=== PATIENT | female | born 1960 | race Caucasian/White ===

== ENCOUNTER → 2016-11-30 | Outpatient (CLI) | payer MEDICARE, OTHER ==
[2016-11-30 15:44] LABS: CH 29.8; CHCM 33.9; HCT 40.4 % (34.0-46.0); HDW 2.67; HGB 13.8 gm/dL (11.4-16.0); MCH 30.3 pg (25.0-35.0); MCHC 34.2 g/dL (31.0-37.0); MCV 88.5 fL (80.0-100.0); Mean Platelet Volume 7.8; RBC 4.57 m/uL (3.80-5.40); RDW 13.4 % (11.5-15.5); WBC 4.6 k/uL (3.8-10.6)
[2016-11-30 16:16] LABS: ALT 46 U/L (9-52); AST 24 U/L (14-36); Alkaline Phosphatase 54 U/L (38-126); Anion Gap 7 mmol/L; Blood Urea Nitrogen 9 mg/dL (7-17); C Reactive Protein <5.0 mg/L (<10.0); Calcium 9.5 mg/dL (8.4-10.2); Carbon Dioxide 29 mmol/L (22-30); Chloride 108 mmol/L (98-107); Creatine Kinase 52 U/L (30-135); Glucose 88 mg/dL (74-99); Magnesium 1.9 mg/dL (1.6-2.3); Non-African American GFR(MDRD) >60 (>60 ml/min/1.73 sqM); Potassium 4.1 mmol/L (3.5-5.1); Sodium 144 mmol/L (137-145); Total Protein 7.2 g/dL (6.3-8.2)
[2016-11-30 16:58] LABS: Vitamin B12 597 pg/mL (239-931)
[2016-11-30 17:42] LABS: Erythrocyte Sedimentation Rate 10 mm/hr (0-20)
[2016-11-30 18:15] LABS: Hemoglobin A1C 5.2 % (4.2-6.1)
[2016-12-01 05:40] LABS: Cyclic Citrullinated Pep IgG 5 UNITS (<20)
[2016-12-02 06:49] LABS: Vitamin E (Alpha Tocopherol) 1094 ug/dL (500-1800)
[2016-12-08 22:37] LABS: Vitamin K 87 pg/mL (80-1160)
[2016-12-12 09:01] LABS: Mis test requested (Blood) Vitamin B3 (Niacin)
== END | disposition home or self-care (01) ==
LOC: LABWHC1 15:12
PROVIDERS: ATTEND Psychiatry & Neurology Pain Medicine
DX: G89.4 Chronic pain syndrome (principal); M79.7 Fibromyalgia; Z79.899 Other long term (current) drug therapy
CPT/HCPCS: 36415; 80053; 82306; 82550; 82607; 83036; 83519; 83735; 84207; 84425; 84446; 84590; 84591; 84597; 85027; 85652; 86140; 86200; 86235

== ENCOUNTER 2017-06-09 06:32 | Day surgery (SDC) | payer MEDICARE, OTHER ==
[2017-06-05 15:37] VITALS: BMI 29.1
[2017-06-09] MEDS ORDERED: SODIUM CHLORIDE 0.9% 1,000 ML in EMPTY BAG 1 BAG IV ONE (06:36)
[2017-06-09] MEDS ORDERED: ALPRAZolam 0.25 MG TAB PO PRN (06:36)
[2017-06-09] MEDS ORDERED: ASPIRIN 325 MG TAB PO STA (06:36)
[2017-06-09] MEDS ORDERED: ZOLPIDEM 5 MG TAB PO PRN (06:36)
[2017-06-09 07:20] VITALS: TEMP 98
[2017-06-09] MEDS ORDERED: MIDAZOLAM 2 MG/2 ML VIAL IV ONE (07:44)
[2017-06-09] MEDS ORDERED: LIDOCAINE 2% INJ 20 MG/ML SQ ONE (07:44)
[2017-06-09] MEDS ORDERED: IODIXANOL 320 MG/ML 100 ML INTRAARTER ONE (08:13)
[2017-06-09] MEDS ORDERED: SODIUM CHLORIDE 0.9% 1,000 ML IV SCH (08:15)
[2017-06-09] MEDS ORDERED: HYDROcodone/APAP 5-325MG 1 EACH TAB PO STA (09:36)
[2017-06-09] MEDS ORDERED: HYDROcodone/APAP 5-325MG 1 EACH TAB ONE (09:39)
[2017-06-09 11:44] VITALS: PULSE 68
[2017-06-09 13:54] VITALS: RESP 18
[2017-06-09 13:55] VITALS: BP 119/75
--- NOTE | 2017-06-09 16:09 | LTR ---
Date: June 09, [address] Beltrán: Mrs. Courtney Worthington underwent abdominal aortogram and bilateral lower extremities runoff today. This study showed normal aortoiliac arteries bilaterally, normal femoral- popliteal arteries bilaterally, but severe klwrm-djm-yxyw disease bilaterally with very diminished flow and probably subtotally occluded AT and PT on the right side as well as very diminished flow and probably subtotally occluded anterior tibial, and peroneal on the left side. In view of the absence of critical limb ischemia. I would recommend maximize medical treatment and follow up. I want to thank you very much for allowing me to participate in her care and please do not hesitate to call me with any question or concern. MMODL / IJN: [id number] /
--- NOTE | 2017-06-09 16:22 | AN ---
ANGIOGRAPHY REPORT DATE OF PROCEDURE: 06/09/2017 PERFORMING PHYSICIAN: Toro Agarwal, connection worker. PROCEDURES PERFORMED: 1. Abdominal aortogram. 2. Bilateral lower extremity runoff. 3. Selective left superficial femoral artery angiogram. 4. Selective right common femoral artery angiogram. 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 Moraes as her nursing director. She was experiencing bilateral lower extremity discomfort related to intermittent claudication. She underwent an ankle brachial index as an outpatient in Dr. Beltrán's office which was abnormal bilaterally, indicating severe underlying PAD. APPROACH: Right common femoral artery. COMPLICATIONS: None. LEVEL OF SEDATION: Moderate with sedation length of 30 minutes. PROCEDURE DESCRIPTION: After obtaining informed consent, the patient was brought to the cardiac director of cardiac cath lab. The right common femoral artery was cannulated using micropuncture technique under ultrasound guidance. The micropuncture wire passed easily. Then I placed a 5-[place] sheath in the right common femoral artery. Subsequently I did an abdominal aortogram and bilateral lower extremity runoff using 5-[place] pigtail catheter which was initially placed at the level of the renal arteries. Then it was pulled into above the bifurcation of the aorta to right and left common iliac arteries. After that, I selected the left SFA as well as the right common femoral artery for better dklba-bry-dqzf opacifications. The procedure was completed without any complication. SELECTIVE PERIPHERAL ANGIOGRAM: 1. The abdominal aorta is angiographically normal. It bifurcates into right and left common iliac arteries. 2. Common iliac arteries. The right and left common iliac arteries are angiographically normal. 3. Internal iliac arteries. The right and left internal iliacs are angiographically normal. 4. External iliacs. The right and left external iliacs are angiographically normal. 5. Common femorals. The right and left common femoral arteries are angiographically normal. 6. Profundae. The right and left profundae are normal. 7. SFA. The right and left SFAs are angiographically normal. 8. Popliteals. The right and left popliteals are angiographically normal. 9. Below the knee. There were poor opacifications of the arteries below the knee, and for that reason I selected the left SFA and the right common femoral arteries. On the left side, there was 3-vessel runoff with very dominant posterior tibial and very diminished flow in the anterior tibial as well as peroneal. On the right side, though, there were also 4 opacifications, but I was able to visualize a very dominant peroneal with poor opacifications and probably subtotally occluded PT and AT. CONCLUSION: 1. Normal aortoiliac arteries bilaterally. 2. Normal femoropopliteal arteries bilaterally. 3. Severe favie-fnn-axcr disease disease bilaterally with subtotally occluded AT and PT on the right side as well as subtotally occluded AT and peroneal on the left side. POST-PROCEDURE MANAGEMENT: 1. Maximize medical treatment in view of the absence of critical limb ischemia in this lady. 2. Follow up with the patient. MMODL / IJN: [id number] /
--- NOTE | 2017-06-15 06:31 | IR ---
EXAMINATION TYPE: IR angio abdominal w runoff DATE OF EXAM: 06/09/2017 COMPARISON: NONE HISTORY: Peripheral vascular occlusive disease. Fluoroscopy was provided to the referring clinician. See dictated report from cardiology.
== END 2017-06-09 13:55 | disposition home or self-care (01) ==
LOC: CATHCVL 06:32
PROVIDERS: ATTEND Internal Medicine Interventional Cardiology
DX: I70.213 Atherosclerosis of native arteries of extremities with intermittent claudication, bilateral legs (principal); Z87.891 Personal history of nicotine dependence; E78.5 Hyperlipidemia, unspecified; Z79.1 Long term (current) use of non-steroidal anti-inflammatories (NSAID); Z79.899 Other long term (current) drug therapy
CPT/HCPCS: 36200; 75625; 75716; 99152; 99153; C1769 ×4; C1894; J2001; J2250; Q9967

== ENCOUNTER → 2018-03-07 | Outpatient (CLI) | payer MEDICARE | END | disposition home or self-care (01) | LOC: LABWHC1 15:54 | PROVIDERS: ATTEND Nurse Practitioner Acute Care | DX: I49.9 Cardiac arrhythmia, unspecified (principal) | CPT/HCPCS: 36415; 93005 ==

== ENCOUNTER → 2018-08-08 | Outpatient (CLI) | payer MEDICARE, OTHER ==
--- NOTE | 2018-08-09 12:01 | MM ---
Reason for exam: screening (asymptomatic). Last mammogram was performed 1 year and 11 months ago. History: Patient is postmenopausal. Benign US breast needle core LT of the left breast, January 18, 2016. MG 3D Screening Mammo W/Cad Bilateral CC and MLO view(s) were taken. Prior study comparison: August 25, 2016, left breast MG 3d diag mammo w/cad LT. January 18, 2016, left breast MG diagnostic mammo LT wo CAD. The breast tissue is heterogeneously dense. This may lower the sensitivity of mammography. Previous mammotome biopsy left breast. No discrete abnormality. No significant new finding since most recent study. ASSESSMENT: Benign, BI-RAD 2 RECOMMENDATION: Routine screening mammogram of both breasts in 1 year.
== END | disposition home or self-care (01) ==
LOC: RADMAMWWP 15:12
PROVIDERS: ATTEND Family Medicine
DX: Z12.31 Encounter for screening mammogram for malignant neoplasm of breast (principal)
CPT/HCPCS: 77063; 77067

== ENCOUNTER → 2018-08-14 | Outpatient (CLI) | payer MEDICARE, OTHER | END | disposition home or self-care (01) | LOC: LABWHC1 08:53 | PROVIDERS: ATTEND Psychiatry & Neurology Pain Medicine | DX: Z01.818 Encounter for other preprocedural examination (principal) | CPT/HCPCS: 36415; 93005 ==

== ENCOUNTER 2019-01-11 07:26 | Day surgery (SDC) | payer MEDICARE, OTHER ==
[2019-01-08 11:25] VITALS: BMI 29.9
[~2019-01-11 07:26] MED LIST: SODIUM CHLORIDE 0.9% 1,000 ML in EMPTY BAG 1 BAG IV ONE
[2019-01-11 07:47] VITALS: TEMP 97.9
[2019-01-11] MEDS ORDERED: MIDAZOLAM (PF) 2 MG/2 ML VIAL IV ONE (10:06)
[2019-01-11] MEDS ORDERED: LIDOCAINE 1% INJ 10MG/ML (20 ML MDV) SQ ONE (10:09)
[2019-01-11] MEDS ORDERED: IOPAMIDOL-250 50ML BTL INTRAARTER ONE (10:29)
[2019-01-11] MEDS ORDERED: IOPAMIDOL-250 100ML BTL INTRAARTER ONE (10:29)
[2019-01-11] MEDS ORDERED: SODIUM CHLORIDE 0.9% 1,000 ML IV SCH (10:45)
--- NOTE | 2019-01-11 11:17 | IR ---
EXAMINATION TYPE: IR angio abdominal w runoff DATE OF EXAM: 01/11/2019 COMPARISON: NONE HISTORY: Fluoroscopy time. Fluoroscopy was provided to the referring clinician.
[2019-01-11 11:32] VITALS: RESP 18
[2019-01-11 14:35] VITALS: BP 138/84; PULSE 92
--- NOTE | 2019-01-11 14:57 | LTR ---
January 11, 2019 To: Dr. Whalen Re: Courtney Worthington (64) Dear Dr. Whalen, Ms. Courtney Worthington underwent today peripheral angiogram that showed severe below-the- knee disease bilaterally. I did advise maximized medical treatment at this point of time and followup with her. Thank you for allowing us to participate in her care. Please do not hesitate to call if you have any question or concern. Sincerely, Eduardo Lucio M.D. MELVIN / ARABELLA: [id number] /
--- NOTE | 2019-01-11 18:24 | AN ---
ANGIOGRAPHY REPORT DATE OF SERVICE: 01/11/2019 PERFORMING PHYSICIAN: Eduardo Lucio MD, project manager finance. PROCEDURES PERFORMED: 1. Abdominal aortogram. 2. Bilateral lower extremity runoff. 3. Non-selective left qfkxh-fxx-zvhf angiogram. INDICATION: This is a 58-year-old female patient with hypertension and dyslipidemia and known history of peripheral arterial disease based on angiogram that was performed in 2017. At that point she was found to have severe agpfv-dua-ebtw disease bilaterally, but maximized medical treatment was advised because she was only a . Recently she developed a non-healing ulcer involving the third toe on the left side. She was seen by Dr. Beltrán, her feed crusher operator, who recommended proceeding with a peripheral angiogram. APPROACH: Left common femoral artery. COMPLICATIONS: None. LEVEL OF SEDATION: Moderate with sedation length of 22 minutes. PROCEDURE DESCRIPTION: After obtaining informed consent, the patient was brought to the cardiac laborer wharf. The left common femoral artery was cannulated using micropuncture technique and the micropuncture wire passed easily. Then I placed a 5-[place] sheath in the left common femoral artery. I did an abdominal aortogram and bilateral lower extremity runoff using a 4-[place] pigtail catheter which was initially placed at the level of the renal arteries, then it was pulled into above the bifurcation of the aorta to right and left common iliac arteries. After that I did multiple injections through the sheath to assess the arteries below the knee on the left side. The procedure was completed without any complication. SELECTIVE PERIPHERAL ANGIOGRAM: 1. The aorta appeared to be angiographically normal. 2. Common iliac arteries. The right and left common iliac arteries are angiographically normal. 3. External iliac arteries. The right and left external iliac arteries are normal. 4. Internal. The right and left internal are patent. 5. Common femoral arteries. The right and left common femoral arteries are angiographically normal. 6. Profundae. Both profundae are patent. 7. SFA. Both SFAs appeared to have mild disease only. 8. Popliteals. Both popliteals appeared to be angiographically normal. 9. Below the knee. On the right side she has anterior tibial and peroneal open. On the left side she has only posterior tibial with occluded anterior tibial and peroneal at the mid level. CONCLUSION: 1. Normal aortoiliac arteries. 2. Normal femoral-popliteal arteries. 3. Severe sqmul-gnp-yewu disease bilaterally. On the left side the patient has only one-vessel runoff with posterior tibial with occluded anterior tibial as well as occluded peroneal. The occlusion is a long segment extending from the proximal portion of these arteries all the way to the foot level. POST-PROCEDURE MANAGEMENT: 1. I did advise maximized medical treatment at this point of time. 2. Increase the dose of cilostazol. 3. Follow up with the patient. MMNATHAN / IJN: [id number] /
== END 2019-01-11 16:00 | disposition home or self-care (01) ==
LOC: CATHCVL 07:26
PROVIDERS: ATTEND Internal Medicine Interventional Cardiology
DX: I70.213 Atherosclerosis of native arteries of extremities with intermittent claudication, bilateral legs (principal); I99.8 Other disorder of circulatory system; I10 Essential (primary) hypertension; E78.5 Hyperlipidemia, unspecified; F17.210 Nicotine dependence, cigarettes, uncomplicated; Z79.899 Other long term (current) drug therapy; Z79.82 Long term (current) use of aspirin; Z79.890 Hormone replacement therapy; Z79.1 Long term (current) use of non-steroidal anti-inflammatories (NSAID)
CPT/HCPCS: 36200; 75625; 75716; C1894; C1769 ×4; J2001; Q9966 ×2; J2250

== ENCOUNTER → 2019-05-17 | Outpatient (CLI) | payer MEDICARE, OTHER | END | disposition home or self-care (01) | LOC: LABWHC1 14:15 | PROVIDERS: ATTEND Psychiatry & Neurology Pain Medicine | DX: Z01.818 Encounter for other preprocedural examination (principal) | CPT/HCPCS: 36415; 93005 ==

== ENCOUNTER → 2019-05-21 | Outpatient (CLI) | payer MEDICARE, OTHER ==
--- NOTE | 2019-05-21 15:46 | XR ---
EXAMINATION TYPE: XR finger LT DATE OF EXAM: 05/21/2019 COMPARISON: NONE HISTORY: Pain TECHNIQUE: Two views of the left middle digit are submitted. FINDINGS: The osseous structures are intact. The joint spaces are preserved and there is no acute fracture or dislocation. IMPRESSION: 1. No definite acute fracture or dislocation if symptoms persist, follow-up study in 7 to 10 days wo uld be suggested
== END | disposition home or self-care (01) ==
LOC: RADXRYALE 15:16
PROVIDERS: ATTEND Physician Assistant Medical
DX: S61.203A Unspecified open wound of left middle finger without damage to nail, initial encounter (principal)

== ENCOUNTER → 2019-08-02 | Outpatient (CLI) | payer MEDICARE, OTHER ==
--- NOTE | 2019-08-02 16:20 | CT ---
EXAMINATION TYPE: CT cervical spine wo con DATE OF EXAM: 08/02/2019 COMPARISON: None HISTORY: 59-year-old female Cervicalgia TECHNIQUE: Contiguous axial scanning of the cervical spine without IV contrast. Coronal and sagittal reconstructions performed. CT DLP: 537.50 mGycm Automated exposure control for dose reduction was used. FINDINGS: Spinal stimulator array images present along the dorsal aspect of the cervical spinal canal. The lead s enter the spinal canal via the C7-T1 interlaminar space No craniocervical junction abnormality, predental space widening, or prevertebral soft tissue swellin g. Reversal of the normal cervical lordosis. Moderate to advanced degenerative disc disease at C5-C6 with disc height loss, vacuum phenomenon, and disc osteophyte complex. An underlying mild to moderate spinal canal stenosis is suspected here. Uncovertebral joint arthropathy especially in the mid cervical spine. Scattered mild facet arthropath y. At C2-C3, mild right neuroforaminal narrowing. At C3-C4, mild right neuroforaminal stenosis. At C5-C6, moderate to severe left and moderate right neuroforaminal stenosis. Bulky enlargement of the bilateral lingual tonsils effacing the vallecular spaces. IMPRESSION: 1. SPINAL STIMULATOR ARRAY WITHIN THE DORSAL ASPECT OF THE CERVICAL SPINAL CANAL. LEADS ENTERING VIA THE C7-T1 INTERLAMINAR SPACE. 2. REVERSAL OF THE NORMAL CERVICAL LORDOSIS BUT WITH PRESERVED ALIGNMENT. 3. MODERATE TO ADVANCED DEGENERATIVE DISC DISEASE AT C5-C6 WITH DISC OSTEOPHYTE COMPLEX CONTRIBUTING TO A MILD TO MODERATE SPINAL CANAL STENOSIS HERE. 4. ADDITIONAL SCATTERED FACET AND UNCOVERTEBRAL JOINT ARTHROPATHY. MODERATE TO SEVERE LEFT AND MODERA TE RIGHT NEUROFORAMINAL STENOSIS AT C5-C6. ADDITIONAL SCATTERED MILD NEURAL FORAMINAL NARROWING PARTI CULARLY ON THE RIGHT. 5. INCIDENTAL: BILATERAL BULKY LINGUAL TONSILLAR HYPERTROPHY.
[2019-08-02 20:07] LABS: Anti-DNA, DS unit <1.0 IU/mL; Anti-Smith Ab Interp NEGATIVE (NEGATIVE); Cyclic Citrull Pep IgG Unit <0.5 U/mL; Cyclic Citrullinated Pep IgG NEGATIVE (NEGATIVE); DNA Double-Stranded NEGATIVE (NEGATIVE); JO-1 IgG Antibody <0.2 AI; Scleroderma SC-70 Ab <0.2 AI
== END | disposition home or self-care (01) ==
LOC: RADCTMAIN 13:38
PROVIDERS: ATTEND Psychiatry & Neurology Neurology
DX: M48.02 Spinal stenosis, cervical region (principal); M50.322 Other cervical disc degeneration at C5-C6 level; M46.92 Unspecified inflammatory spondylopathy, cervical region; M25.50 Pain in unspecified joint; Z98.890 Other specified postprocedural states
CPT/HCPCS: 72125; 83516; 86038; 86200; 86225; 86235

== ENCOUNTER → 2019-09-23 | Outpatient (CLI) | payer MEDICARE, OTHER ==
--- NOTE | 2019-09-26 10:41 | MM ---
Reason for exam: screening (asymptomatic). Last mammogram was performed 1 year and 2 months ago. History: Patient is postmenopausal. Benign US breast needle core LT of the left breast, January 18, 2016. Physical Findings: A clinical breast exam by your physician is recommended on an annual basis and results should be correlated with mammographic findings. MG 3D Screening Mammo W/Cad Bilateral CC and MLO view(s) were taken. Prior study comparison: August 08, 2018, bilateral MG 3d screening mammo w/cad. August 25, 2016, left breast MG 3d diag mammo w/cad LT. The breast tissue is heterogeneously dense. This may lower the sensitivity of mammography. Previous mammotome biopsy in the left breast. There is no discrete abnormality. ASSESSMENT: Benign, BI-RAD 2 RECOMMENDATION: Routine screening mammogram of both breasts in 1 year.
== END | disposition home or self-care (01) ==
LOC: RADMAMWWP 16:20
PROVIDERS: ATTEND Family Medicine
DX: Z12.31 Encounter for screening mammogram for malignant neoplasm of breast (principal)
CPT/HCPCS: 77063; 77067

== ENCOUNTER → 2019-12-11 | Outpatient (CLI) | payer MEDICARE, OTHER ==
--- NOTE | 2019-12-11 16:15 | CT ---
EXAMINATION TYPE: CT lumbar spine wo con DATE OF EXAM: 12/11/2019 4:04 PM COMPARISON: CT lumbar spine September 02, 2016. HISTORY: Low back pain x 5-[address] DLP: 744.2 mGycm Automated exposure control for dose reduction was used. Unenhanced CT of the lumbar spine was performed. Bone and soft tissue window settings are submitted as well as coronal and sagittal reconstructions. There are 5 lumbar-type vertebra redemonstrated. Vertebral body heights and disc space heights are ma intained. Spinal canal grossly preserved. Review of axial images shows mild facet arthropathy L3-L4 level. There is mild broad disc bulge and mild to moderate right greater than left facet degenerative change s L4-L5 level with mild effacement of the anterior and posterior lateral thecal sac that is more prom inent from 2016 study and causing mild right-sided anterior inferior neural foraminal narrowing. Axial images at the L5-S1 level mild facet degenerative changes bilaterally with r and tiny right par acentral disc protrusion. Bilateral neural foramina are patent. Suspect some recent contrast as there is some density in collecting systems. Correlate clinically. IMPRESSION: Mild degenerative changes mid to lower lumbar spine most prominent L4-L5 level with some progression from 2016 CT.
== END ==
LOC: RADCTMAIN 15:37
PROVIDERS: ATTEND Psychiatry & Neurology Neurology
DX: M47.816 Spondylosis without myelopathy or radiculopathy, lumbar region (principal)
CPT/HCPCS: 72131

== ENCOUNTER → 2020-03-06 | Outpatient (CLI) | payer MEDICARE, OTHER | END | disposition home or self-care (01) | LOC: LABPAT 12:50 | PROVIDERS: ATTEND Psychiatry & Neurology Pain Medicine | DX: Z01.818 Encounter for other preprocedural examination (principal) | CPT/HCPCS: 93005 ==

== ENCOUNTER → 2020-06-03 | Outpatient (CLI) | payer MEDICARE, OTHER ==
--- NOTE | 2020-06-03 17:21 | XR ---
EXAMINATION TYPE: XR ribs RT w pa chest xray DATE OF EXAM: 06/03/2020 CLINICAL HISTORY: Chest pain. Right anterior mid rib pain after fall 2010 days ago. TECHNIQUE: Frontal view of the chest obtained. For views of the right ribs obtained. COMPARISON: 02/04/2016 chest radiograph FINDINGS: Spinal stimulator leads overlying the cervicothoracic junction and left hemithorax and left upper abdomen. Cardiac mediastinal silhouette and pulmonary catheter normal. No focal airspace opaci ty, pleural effusion, or pneumothorax. No evidence of displaced rib fracture. IMPRESSION: No evidence of displaced rib fracture.
== END | disposition home or self-care (01) ==
LOC: RADXRYALE 10:25
PROVIDERS: ATTEND Physician Assistant
DX: R07.89 Other chest pain (principal)

== ENCOUNTER → 2020-09-14 | Outpatient (CLI) | payer MEDICARE, OTHER | END | disposition home or self-care (01) | LOC: LABWHC1 08:36 | PROVIDERS: ATTEND Psychiatry & Neurology Pain Medicine | DX: Z01.818 Encounter for other preprocedural examination (principal) | CPT/HCPCS: 36415; 93005 ==

== ENCOUNTER → 2021-01-19 | Outpatient (CLI) | payer MEDICARE, OTHER ==
--- NOTE | 2021-01-20 08:07 | BD ---
EXAMINATION TYPE: Axial Bone Density DATE OF EXAM: 01/19/2021 COMPARISON: NONE CLINICAL HISTORY: Height: 64 IN Weight: 170 LBS FRAX RISK QUESTIONS: Secondary Osteoporosis: Rheumatoid Arthritis: YES RISK FACTORS HISTORY OF: Active: YES Postmenopausal woman: AGE 51 MEDICATIONS: Thyroid Medications: YES Which medication: Synthroid How Lon + YEARS Additional Medications: CALCIUM, VIT D, SYNTHROID, AMITRIPTYLINE, CILOSTAZOL, DULOXETINE, FAMOTIDINE, MELATONIN, PRAMIPEXOLE, PRAVASTATIN EXAM MEASUREMENTS: Bone mineral densitometry was performed using the [employer] [facility]. Bone mineral density as measured about the Lumbar spine is: ----- L1-L4(G/cm2): 1.107 T Score Values are as follows: ----- L2: -1.4 ----- L3: 0.4 ----- L4: 0.0 ----- L1-L4: -0.6 Bone mineral density BASELINE Bone mineral density about the R hip (g/cm2): 0.923 Bone mineral density about the L hip (g/cm2): 0.823 T Score values are as follows: -----R Neck: -0.8 -----L Neck: -1.0 -----R Total: -0.7 -----L Total: -0.6 Bone mineral density BASELINE IMPRESSION: No evidence for osteoporosis or osteopenia. NOTE: T-SCORE=SD OF THE YOUNG ADULT MEAN.
--- NOTE | 2021-01-20 08:35 | MM ---
Reason for exam: screening (asymptomatic). Last mammogram was performed 1 year and 4 months ago. History: Patient is postmenopausal. Benign US breast needle core LT of the left breast, January 18, 2016. Physical Findings: A clinical breast exam by your physician is recommended on an annual basis and results should be correlated with mammographic findings. MG 3D Screening Mammo W/Cad Bilateral CC and MLO view(s) were taken. Prior study comparison: September 23, 2019, bilateral MG 3d screening mammo w/cad. August 08, 2018, bilateral MG 3d screening mammo w/cad. The breast tissue is heterogeneously dense. This may lower the sensitivity of mammography. Previous mammotome biopsy in the right breast. No significant changes when compared with prior studies. ASSESSMENT: Benign, BI-RAD 2 RECOMMENDATION: Routine screening mammogram of both breasts in 1 year.
== END | disposition home or self-care (01) ==
LOC: RADMAMWWP 15:23
PROVIDERS: ATTEND Family Medicine
DX: Z12.31 Encounter for screening mammogram for malignant neoplasm of breast (principal); Z78.0 Asymptomatic menopausal state; M81.8 Other osteoporosis without current pathological fracture
CPT/HCPCS: 77063; 77067; 77080

== ENCOUNTER → 2021-03-12 | Outpatient (CLI) | payer MEDICARE, OTHER | END | disposition home or self-care (01) | LOC: LABWHC1 14:31 | PROVIDERS: ATTEND Psychiatry & Neurology Pain Medicine | DX: Z01.810 Encounter for preprocedural cardiovascular examination (principal) | CPT/HCPCS: 36415; 93005 ==

== ENCOUNTER → 2021-07-28 | Outpatient (CLI) | payer MEDICARE, OTHER | END | disposition home or self-care (01) | LOC: LABWHC1 14:52 | PROVIDERS: ATTEND Psychiatry & Neurology Pain Medicine | DX: Z51.81 Encounter for therapeutic drug level monitoring (principal) | CPT/HCPCS: 93005 ==

== ENCOUNTER → 2021-11-16 | Outpatient (CLI) | payer MEDICARE, OTHER ==
[2021-11-16 19:15] LABS: T4, Free (Free Thyroxine) 1.65 ng/dL (0.800-1.800)
== END | disposition home or self-care (01) ==
LOC: LABWHC1 10:41
PROVIDERS: ATTEND Physician Assistant
DX: E03.9 Hypothyroidism, unspecified (principal)
CPT/HCPCS: 36415; 84439; 84443

== ENCOUNTER 2021-11-21 11:38 | Emergency (ER) | payer MEDICARE, OTHER ==
--- NOTE | 2021-11-21 12:23 | ED ---
Recheck HPI - General Chief Complaint: Recheck/Abnormal Lab/Rx Stated Complaint: Covid Test Time Seen by Provider: 11/21/21 12:01 Source: patient Mode of arrival: ambulatory Limitations: no limitations - History of Present Illness Initial Comments: Patient is a 61-year-old female who presents to the emergency department with a chief complaint of covid-19 exposure. Patient was exposed by her daughter one week ago. Patient reports a mild sore throat that started on 11/17/21. She has no other complaints at this time including fever, chills, upper respiratory symptoms, headache, shortness of breath, chest pain, abdominal pain. Patient would like to get tested as her is getting discharged from a [facility] today. - Related Data Home Medications Medication Instructions Recorded Confirmed Calcium Carbonate [Calcium] 600 mg PO DAILY 11/04/15 01/11/19 DULoxetine HCL [Cymbalta] 60 mg PO DAILY 11/04/15 01/11/19 HYDROcodone/APAP 10-325MG [[place] 1 tab PO HS PRN 11/04/15 01/11/19 10-325] Levothyroxine Sodium [Synthroid] 75 mcg PO DAILY 02/04/16 01/11/19 Rizatriptan Benzoate [Rizatriptan] 10 mg PO DAILY PRN 02/04/16 01/08/19 Ubidecarenone [Co Q-10] 100 mg PO DAILY 02/04/16 01/11/19 [place] 40 mg PO DAILY 06/05/17 01/11/19 Omeprazole 20 mg PO DAILY 06/05/17 01/11/19 Cilostazol [Pletal] 100 mg PO BID 01/08/19 01/11/19 Cyclobenzaprine [Flexeril] 5 mg PO BID 01/08/19 01/11/19 Allergies Allergy/AdvReac Type Severity Reaction Status Date / Time No Known Allergies Allergy Verified 11/21/21 11:54 Review of Systems ROS Statement: Those systems with pertinent positive or pertinent negative responses have been documented in the HPI. ROS Other: All systems not noted in ROS Statement are negative. Past Medical History Past Medical History: Fibromyalgia, Thyroid Disorder Additional Past Medical History / Comment(s): d/t pain uses scooter for long distances History of Any Multi-Drug Resistant Organisms: None Reported Past Surgical History: Tonsillectomy Additional Past Surgical History / Comment(s): thyroidectomy, carpal tunnel release-right, left side breast biopsy Past Anesthesia/Blood Transfusion Reactions: No Reported Reaction Past Psychological History: No Psychological Hx Reported Smoking Status: Never smoker Past Alcohol Use History: Rare Past Drug Use History: None Reported - Past Family History Mother Family Medical History: No Reported History General Exam Limitations: no limitations General appearance: alert, in no apparent distress Head exam: Present: atraumatic, normocephalic, normal inspection Eye exam: Present: normal appearance, PERRL, EOMI. Absent: scleral icterus, conjunctival injection, periorbital swelling ENT exam: Present: normal oropharynx, mucous membranes moist Respiratory exam: Present: normal lung sounds bilaterally. Absent: respiratory distress, wheezes, rales, rhonchi, stridor Cardiovascular Exam: Present: regular rate, normal rhythm, normal heart sounds. Absent: systolic murmur, diastolic murmur, rubs, gallop, clicks Course Vital Signs 11/21/21 11:51 Temperature 98.5 F Pulse Rate 109 H Respiratory 20 Rate Blood Pressure 150/94 O2 Sat by Pulse 98 Oximetry Medical Decision Making - Medical Decision Making This is a 61-year-old female positive with COVID-19. Thorough history and examination were performed. Oxygen is at 95% RA. Repeat pulse is 95. Patient looks well and is sitting at bedside. She does mention she is a bit anxious. She does not meet criteria for monoclonal antibody treatment. I strongly encouraged patient to isolate herself from her who will be discharged from [facility] today. We did discuss the importance of mask use if isolation is not possible. Return parameters discussed. Patient verbalizes understanding and is agreeable to plan. Dr. Hercules is my attending. - Lab Data Lab Results 11/21/21 Range/Units 11:55 Coronavirus (PCR) Detected A (Not Detectd) Disposition Clinical Impression: COVID-19 Disposition: HOME SELF-CARE Condition: Good Instructions (If sedation given, give patient instructions): Coronavirus Disease 2019 (COVID-19) Additional Instructions: Quarantine at home for 5 days after symptom onset. Take Tylenol as needed for pain. Return to the emergency department if you experience new, concerning, or worsening symptoms. Is patient prescribed a controlled substance at d/c from ED?: No Referrals: Bruce Whalen DO [Primary Care Provider] - 1-2 days Time of Disposition: 12:23
[2021-11-21 12:47] VITALS: BP 119/82; PULSE 94; RESP 18; TEMP 97.1
== END 2021-11-21 12:42 | disposition home or self-care (01) ==
LOC: EC 11:38
DX: U07.1 COVID-19 (principal); E07.9 Disorder of thyroid, unspecified
CPT/HCPCS: 87635; 99283

== ENCOUNTER 2022-02-04 17:16 | Emergency (ER) | payer MEDICARE, OTHER ==
[2022-02-04 17:49] VITALS: BP 146/93; PULSE 102; RESP 18; TEMP 98.3
[2022-02-04] MEDS ORDERED: CEPHALEXIN 500 MG CAP PO STA (20:03)
[2022-02-04] MEDS ORDERED: ACETAMINOPHEN TAB 500 MG TAB PO STA (20:05)
--- NOTE | 2022-02-04 20:15 | ED ---
Lower Extremity Injury HPI - General Chief Complaint: Extremity Injury, Lower Stated Complaint: R Foot Injury Time Seen by Provider: 02/04/22 19:54 Source: patient, RN notes reviewed Mode of arrival: wheelchair Limitations: no limitations - History of Present Illness Initial Comments: This is a pleasant 62-year-old female who inadvertently struck her left foot with a high pressure power shovel mechanic. Patient states she was doing some cleaning at home and trying to get some albuterol growth off of some equipment. Patient states she inadvertently went over the dorsum of her left foot with a power shovel mechanic. She has a small puncture wound to the area. Patient is on blood thinners for previous DVTs. Patient complaining of some pain to the area. No other injuries. Patient states that she has had a tetanus shot within the last 5 years. No history of immunosuppression. No headache, no fever or chills, no changes in vision or hearing, no sore throat or difficulty with speech, no neck pain, no chest pain or shortness of breath, no abdominal pain, no nausea or vomiting, no changes in urination or bowel movements, no numbness or tingling,, no skin rashes or lesions. - Related Data Home Medications Medication Instructions Recorded Confirmed Calcium Carbonate [Calcium] 600 mg PO DAILY 11/04/15 01/11/19 DULoxetine HCL [Cymbalta] 60 mg PO DAILY 11/04/15 01/11/19 HYDROcodone/APAP 10-325MG [[place] 1 tab PO HS PRN 11/04/15 01/11/19 10-325] Levothyroxine Sodium [Synthroid] 75 mcg PO DAILY 02/04/16 01/11/19 Rizatriptan Benzoate [Rizatriptan] 10 mg PO DAILY PRN 02/04/16 01/08/19 Ubidecarenone [Co Q-10] 100 mg PO DAILY 02/04/16 01/11/19 Black Cohosh 40 mg PO DAILY 06/05/17 01/11/19 Omeprazole 20 mg PO DAILY 06/05/17 01/11/19 Cilostazol [Pletal] 100 mg PO BID 01/08/19 01/11/19 Cyclobenzaprine [Flexeril] 5 mg PO BID 01/08/19 01/11/19 Previous Rx's Medication Instructions Recorded Cephalexin [Keflex] 500 mg PO Q6HR #28 cap 02/04/22 Allergies Allergy/AdvReac Type Severity Reaction Status Date / Time No Known Allergies Allergy Verified 11/21/21 11:54 Review of Systems ROS Statement: Those systems with pertinent positive or pertinent negative responses have been documented in the HPI. ROS Other: All systems not noted in ROS Statement are negative. Past Medical History Past Medical History: Fibromyalgia, Thyroid Disorder Additional Past Medical History / Comment(s): d/t pain uses scooter for long distances History of Any Multi-Drug Resistant Organisms: None Reported Past Surgical History: Tonsillectomy Additional Past Surgical History / Comment(s): thyroidectomy, carpal tunnel release-right, left side breast biopsy Past Anesthesia/Blood Transfusion Reactions: No Reported Reaction Past Psychological History: No Psychological Hx Reported Smoking Status: Never smoker Past Alcohol Use History: Rare Past Drug Use History: None Reported - Past Family History Mother Family Medical History: No Reported History General Exam Limitations: no limitations General appearance: alert, in no apparent distress Head exam: Present: atraumatic, normocephalic, normal inspection Eye exam: Present: normal appearance, PERRL, EOMI. Absent: scleral icterus, conjunctival injection, periorbital swelling ENT exam: Present: normal exam, mucous membranes moist Neck exam: Present: normal inspection. Absent: tenderness, meningismus, lymphadenopathy Respiratory exam: Present: normal lung sounds bilaterally. Absent: respiratory distress, wheezes, rales, rhonchi, stridor Cardiovascular Exam: Present: regular rate, normal rhythm, normal heart sounds. Absent: systolic murmur, diastolic murmur, rubs, gallop, clicks GI/Abdominal exam: Present: soft, normal bowel sounds. Absent: distended, tenderness, guarding, rebound, rigid Extremities exam: Present: full ROM, normal capillary refill. Absent: normal inspection (Patient has a tiny puncture wound to the dorsum of her left foot. No active bleeding. No bony point tenderness. Pedal pulses are intact), tenderness, pedal edema, joint swelling, calf tenderness Back exam: Present: normal inspection, full ROM Neurological exam: Present: alert, oriented X3, CN II-XII intact Psychiatric exam: Present: normal affect, normal mood Skin exam: Present: warm, dry, intact, normal color. Absent: rash Course Vital Signs 02/04/22 17:48 Temperature 98.3 F Pulse Rate 102 H Respiratory 18 Rate Blood Pressure 146/93 O2 Sat by Pulse 98 Oximetry Medical Decision Making - Medical Decision Making X-ray ordered, patient has no evidence of infectious process or foreign body. This is a high-pressure water injury. We'll cover with antibiotics. Tetanus is already up-to-date per patient. The case was discussed in detail with ED attending physician. Presentation, findings, treatment plan discussed in detail. Patient was told to return to the ER for any signs or symptoms worsen. Told to return immediately if any other problems arise. All questions answered. Treatment plan discussed. Patient in agreement Every effort has been made to ensure accuracy of this dictation. However, due to the limitations of electronic medical records and dictation devices, errors in charting still occur. Wound care discussed in detail. Prophylactic antibiotics with cephalexin. Pain control with acetaminophen. Supervising physician Dr. Mares - Radiology Data Radiology results: report reviewed, image reviewed Disposition Clinical Impression: Puncture wound of left foot, Traumatic effect of water pressure Disposition: HOME SELF-CARE Condition: Good Instructions (If sedation given, give patient instructions): Puncture Wound (ED) Additional Instructions: Soak the wound in warm soapy water for 10-15 minutes at a time 4 times daily. Keep covered with antibiotic ointment and a Band-Aid. Follow-up with the regular physician in 2 days for wound check. Follow-up with your regular physician as directed. Return to the ER immediately if any symptoms worsen, new symptoms arise, or any other problems develop. Is patient prescribed a controlled substance at d/c from ED?: No Referrals: Bruce Whalen DO [Primary Care Provider] - 02/07/22 Time of Disposition: 20:45
[2022-02-04] MEDS ORDERED: BACITRACIN OINT 1 EACH PACKET TOPICAL ONE (20:45)
--- NOTE | 2022-02-04 20:46 | XR ---
EXAMINATION TYPE: XR foot complete RT DATE OF EXAM: 02/04/2022 COMPARISON: NONE HISTORY: Pain TECHNIQUE: 3 views FINDINGS: There is plantar calcaneal spurring. Metatarsals are intact. I see no fracture nor dislocat ion. No evidence of a foreign body. IMPRESSION: Calcaneal spurring. No fracture.
== END 2022-02-04 22:21 | disposition home or self-care (01) ==
LOC: EC 17:16
DX: S91.332A Puncture wound without foreign body, left foot, initial encounter (principal); E07.9 Disorder of thyroid, unspecified; Z79.1 Long term (current) use of non-steroidal anti-inflammatories (NSAID); W01.0XXA Fall on same level from slipping, tripping and stumbling without subsequent striking against object, initial encounter

== ENCOUNTER → 2023-08-11 | Outpatient (CLI) | payer MEDICARE, OTHER | END | disposition home or self-care (01) | LOC: LABWHC1 14:29 | PROVIDERS: ATTEND Physical Medicine & Rehabilitation Pain Medicine | DX: Z01.818 Encounter for other preprocedural examination (principal) | CPT/HCPCS: 36415; 93005 ==

== ENCOUNTER → 2024-04-19 | Outpatient (CLI) | payer MEDICARE ==
--- NOTE | 2024-04-19 18:32 | CT ---
EXAMINATION TYPE: CT cervical spine wo/w con DATE OF EXAM: 04/19/2024 COMPARISON: CT cervical spine 08/02/2019 HISTORY: Low back pain, cervicalgia CT DLP: 3952.8 mGycm for all exams performed at the same time. Automated Exposure Control for Dose R eduction was Utilized. TECHNIQUE: CT scan of the cervical spine is obtained before and after the uneventful administration 100 mL of Isovue-370 intravenously. Axial images are obtained, sagittal and coronal reformatted image s are also reviewed. FINDINGS: Cervical spine is visualized in its entirety from C1 through upper thoracic levels. No evid ence for acute fracture or dislocation. Mild retrolisthesis of C5 on C6. Slight reversal of the marcia l cervical lordosis. Spinous stimulator lead enters the posterior aspect of the spinal canal at C7-T1 interlaminar space and courses cranially and terminates in the posterior spinal canal at midline at the level of C2-C3. This creates streak artifact which limits evaluation. Prevertebral soft tissue appears within normal limits. The C1-C2 articulation is within normal limit s on the coronal images. Moderate to advanced degenerative disc disease identified at C5-C6 with disc height loss, vacuum phen omenon, disc osteophyte complex. Similar [id number] spinal canal stenosis at this level. Right paracentral disc herniation with mild effacement of the anterior thecal sac at C6-T1. Possible centra l disc protrusion at C4-C5 with mild effacement of the anterior thecal sac however evaluation is limi joan due to streak artifact. Uncovertebral joint hypertrophy in the mid cervical spine redemonstrated. Scattered mild facet arthro jerome. Mild right neural foraminal stenosis at C2-C3, mild to moderate bilateral neural foraminal stenosis a t C3-C4, and moderate to severe left and moderate right neuroforaminal stenosis at C5-C6. Thyroid gland is felt within normal limits. Visualized lung apices are clear. The visualized vasculat ure is patent. No abnormal contrast enhancement. IMPRESSION: 1. No acute fracture or dislocation. 2. Multilevel degenerative disease and facet arthropathy. This is most prominent at C5-C6 again due to posterior disc osteophyte complex resulting in [id number] central canal stenosis. Severe lef t and moderate right neural foraminal stenosis at this level. New-appearing right paracentral disc he rniation at C6-C7 with mild central canal stenosis. Possible central disc herniation at C4-C5 with mi ld central canal stenosis however evaluation is limited due to streak artifact from stimulator lead. 3. Stable position of spinal stimulator lead when compared to prior CT in 2019. 4. Moderate diseases C5 on C6 with reversal of the normal cervical lordosis.
--- NOTE | 2024-04-19 18:42 | CT ---
EXAMINATION TYPE: CT thoracic spine wo con CT DLP: 3952.8 mGycm for all exams performed at the same time. Automated exposure control for dose re duction was used. DATE OF EXAM: 04/19/2024 4:53 PM COMPARISON: CT cervical spine 04/19/2024, 08/02/2019, CT lumbar spine 04/19/2024, 08/12/2020. CLINICAL INDICATION:Female, 64 years old with history of M54.50 LOW BACK PAIN M54.2 CERVICALGIA M54.6 T SPIN; [facility], TECHNIQUE: Axial images of the thoracic spine were obtained without contrast. Coronal and sagittal re formats were performed. FINDINGS: The thoracic vertebral bodies have preserved heights and alignment. Benign vertebral heman gioma involving the left posterior aspect of the T3 vertebral body. Intervertebral discs and osseous structures have normal appearance. Please refer to cervical and lumbar CTs of the same day for findi ngs. I do not see any evidence of extradural defects nor significant spinal canal narrowing at any thoraci c vertebral body level. There are 2 spinal stimulator leads coursing within the left back thoracic soft tissues anterior to t he spinal canal at C7-T1 interlaminar space and course cranially. The visualized portions of the lead s appear intact. Small hiatal hernia. Subcentimeter right hepatic lobe likely cysts. Calcified granuloma within the po sterior aspect of the right upper lobe. There is a 6 mm pulmonary nodule within superior segment of t he right lower lobe. IMPRESSION: 1. No spinal canal or neural foraminal stenosis is identified. 2. Spinal stimulator leads identified entering the spinal canal at C7-T1 interlaminar space. 3. 6 mm pulmonary nodule within the right lower lobe superior segment. Consider further evaluation w [facility] CT chest.
--- NOTE | 2024-04-19 18:51 | CT ---
EXAMINATION TYPE: CT lumbar spine wo/w con CT DLP: 3952.8 mGycm for all exams performed at the same time. Automated exposure control for dose re duction was used. DATE OF EXAM: 04/19/2024 4:53 PM COMPARISON: CT lumbar spine 12/11/2019, CT thoracic spine 04/19/2024. CLINICAL INDICATION:Female, 64 years old with history of M54.50 LOW BACK PAIN M54.2 CERVICALGIA M54.6 T SPIN; [facility], TECHNIQUE: Multiple axial images were obtained from the midportion of T11 through the sacroiliac alona nts before and after the uneventful administration of 100 mL Isovue 300 intravenously. Soft tissue a nd bone windows in coronal and sagittal planes were obtained and reviewed. FINDINGS: Alignment: There are 5 lumbar type vertebral bodies within normal alignment. Bone: No evidence of fracture is identified. Discs: T12-L1: No spinal canal or neural foraminal stenosis is identified. L1-L2: No spinal canal or neural foraminal stenosis is identified. L2-L3: No spinal canal or neural foraminal stenosis is identified. L3-L4: Broad-based disc bulge without significant neural foraminal stenosis. Bilateral facet arthropa thy. Mild bilateral neural foraminal stenosis. L4-L5: Broad based disc bulge with ligament flavum buckling resulting in mild central canal stenosis. Bilateral facet arthropathy with mild bilateral neural foraminal stenosis. Similar to prior exam. L5-S1: Tiny right paracentral disc protrusion. No significant central canal stenosis. Bilateral facet arthropathy without significant neural foraminal stenosis. Other: 1.2 cm left renal cyst. Prominent right extra renal pelvis. Partial visualization of spinal st imulator device in the left gluteal region soft tissues. IMPRESSION: 1. No evidence for spinal fracture. 2. Similar mild multilevel degenerative disc disease and facet arthropathy compared to prior CT in 20 20. Again most pronounced at L4-L5 as described above.
== END | disposition home or self-care (01) ==
LOC: RADCTMAIN 14:08
PROVIDERS: ATTEND Physical Medicine & Rehabilitation Pain Medicine
DX: M25.78 Osteophyte, vertebrae (principal); M47.812 Spondylosis without myelopathy or radiculopathy, cervical region; M47.816 Spondylosis without myelopathy or radiculopathy, lumbar region; M48.02 Spinal stenosis, cervical region; M50.223 Other cervical disc displacement at C6-C7 level; M51.36 Other intervertebral disc degeneration, lumbar region
CPT/HCPCS: 72128; 72127; 72133; 36415; Q9967